=== PATIENT | male | born 1960 | race Caucasian/White ===

== ENCOUNTER 2021-01-01 06:03 | Day surgery (SDC) | payer BC ==
[2020-12-31 09:52] VITALS: BMI 34.7
[2021-01-01] MEDS ORDERED: Lidocaine 1% (PF) 30 ML VIAL ONE ×2 (06:35→07:52)
[2021-01-01] MEDS ORDERED: Heparin 10,000 UNITS/ 10 ML VIAL ONE (06:35)
[2021-01-01 06:54] LABS: #Basophils 0.1 thou/uL (0.0-0.2); #Eosinphils 0.2 thou/uL (0.0-0.7); #Monocytes 0.7 thou/uL (0.11-0.59); #Neutrophils 4.9 thou/uL (1.40-6.50); %Basophils 0.9 % (0.0-1.0); %Eosinophils 2.2 % (0.0-10.0); %Lymphocytes 25.6 % (21.0-51.0); %Monocytes 8.8 % (0.0-10.0); %Neutrophils 62.5 % (42.0-75.0); Hemoglobin 16.3 g/dL (14.0-18.0); Mean Corpuscular HGB CONC 34.5 g/dL (32.0-36.0); Mean Corpuscular Hemoglobin 30.8 pg (27.0-31.0); Mean Corpuscular Volume 89.4 fL (78.0-98.0); Platelet Count 236 thou/uL (130-400); RBC Distribution Width 13.4 % (11.5-14.5); Red Blood Cell (RBC) Count 5.29 mill/uL (4.70-6.10); White Blood Cell (WBC) Count 7.8 thou/uL (4.8-10.8)
[2021-01-01 07:14] LABS: ALT (SGPT) 14 U/L (8-55); AST (SGOT) 25 U/L (5-34); Albumin 4.2 g/dL (3.5-5.0); Alkaline Phosphatase 62 U/L (40-110); Anion Gap 11 mmol/L (10-20); BUN (Urea Nitrogen) 15 mg/dL (8.4-25.7); Bilirubin, Total 0.9 mg/dL (0.2-1.2); Calc. Creatinine Clearance 114 mL/min (70-130); Calcium 9.7 mg/dL (7.8-10.44); Carbon Dioxide 28 mmol/L (22-29); Chloride 104 mmol/L (98-107); Cholesterol 146 mg/dl (< 200 Desired); Globulin 3.2 g/dL (2.4-3.5); Glucose 98 mg/dL (70-105); HDL Cholesterol 49 mg/dL (>60 Neg Risk); LDL Cholesterol, Calculated 81 mg/dL; Potassium 3.7 mmol/L (3.5-5.1); Protein, Total 7.4 g/dL (6.0-8.3); Sodium 139 mmol/L (136-145); Triglycerides 81 mg/dL (Less than 150)
[2021-01-01] MEDS ORDERED: Midazolam HCl 2 mg/2 ml Vial ONE (07:36)
[2021-01-01] MEDS ORDERED: Fentanyl 100 MCG/2 ML VIAL ONE (07:36)
[2021-01-01] MEDS ORDERED: Protamine Sulfate 50 MG/5 ML VIAL ONE (08:20)
[2021-01-01] MEDS ORDERED: Iopamidol 370 76% 50 ML VIAL FS ONE ×2 (08:43→08:44)
[2021-01-01] MEDS ORDERED: Iopamidol 370 76% 100 ML VIAL ONE (08:43)
== END 2021-01-01 16:01 | disposition home or self-care (01) ==
LOC: CCL 06:03
PROVIDERS: ATTEND Internal Medicine Cardiovascular Disease
PROC: B2111ZZ Fluoroscopy of Multiple Coronary Arteries using Low Osmolar Contrast (ICD-10-PCS; principal; 2021-01-01)
PROC: 4A023N8 Measurement of Cardiac Sampling and Pressure, Bilateral, Percutaneous Approach (ICD-10-PCS; principal; 2021-01-01)
DX: I35.0 Nonrheumatic aortic (valve) stenosis (principal); I35.1 Nonrheumatic aortic (valve) insufficiency; I10 Essential (primary) hypertension; E89.0 Postprocedural hypothyroidism; E78.00 Pure hypercholesterolemia, unspecified; K21.9 Gastro-esophageal reflux disease without esophagitis; Z79.899 Other long term (current) drug therapy; Z88.0 Allergy status to penicillin
CPT/HCPCS: 36415; 76942; 80053; 80061; 85025; 85347; 93005; 93010; 93460; 93567; 99152; 99153; J1644; J2001; J2250; J2720; J3010; Q9967